=== PATIENT | male | born 1995 | race African-American/Black ===

== ENCOUNTER 2020-02-26 19:58 | Emergency (ER) | payer MEDICAID, SELFPAY | END 2020-02-26 20:31 | disposition home or self-care (01) | LOC: ERS 19:58 | DX: L03.811 Cellulitis of head [any part, except face] (principal); R51 Headache; F31.9 Bipolar disorder, unspecified; F17.210 Nicotine dependence, cigarettes, uncomplicated | CPT/HCPCS: 99283 ==